=== PATIENT | male | born 1990 | race African-American/Black ===

== ENCOUNTER 2024-08-23 12:59 | Inpatient (IN) | payer OTHER ==
[2024-08-23 13:39] VITALS: BMI 18.3
[2024-08-23] MEDS ORDERED: IBUPROFEN 400 MG TABLET (FP) PO PRN (13:52)
[2024-08-23] MEDS ORDERED: LORazepam 1 MG TABLET PO PRN (13:52)
[2024-08-23] MEDS ORDERED: IBUPROFEN 600 MG TABLET (FP) PO PRN (13:52)
[2024-08-23] MEDS ORDERED: MAG HYDROX/AL HYDROX/SIMETH 30 ML UNIT-DOSE CUP PO PRN (13:52)
[2024-08-23] MEDS ORDERED: DICYCLOMINE HCL 10 MG CAPSULE PO PRN (13:52)
[2024-08-23] MEDS ORDERED: BENZOCAINE/MENTHOL (CHLORASEPTIC ) LOZENGE MM PRN (13:52)
[2024-08-23] MEDS ORDERED: NICOTINE POLACRILEX 2 MG GUM BUC PRN (13:52)
[2024-08-23] MEDS ORDERED: BENZONATATE 200 MG CAPSULE PO PRN (13:52)
[2024-08-23] MEDS ORDERED: POLYETHYLENE GLYCOL (HEALTHYLAX) 3350 17 GM PACKET PO PRN (13:52)
[2024-08-23] MEDS ORDERED: METHOCARBAMOL 500 MG TABLET PO PRN (13:52)
[2024-08-23] MEDS ORDERED: guaiFENesin 600 MG TABLET.ER (FP) PO PRN (13:52)
[2024-08-23] MEDS ORDERED: NALOXONE (NARCAN) HCL 4 MG/0.1 ML SPRAY NS PRN (13:52)
[2024-08-23] MEDS ORDERED: MAGNESIUM HYDROX 2400MG/30ML ORAL SUSPENSION 30 ML CUP PO PRN (13:52)
[2024-08-23] MEDS ORDERED: ONDANSETRON *ODT* 4 MG TABLET SL PRN (13:52)
[2024-08-23] MEDS ORDERED: BISMUTH SUBSALICYLATE 524 MG/30 ML PO PRN (13:52)
[2024-08-23] MEDS ORDERED: LOPERAMIDE HCL 2 MG CAPSULE PO PRN (13:52)
[2024-08-23] MEDS ORDERED: hydrOXYzine PAMOATE 25 MG CAPSULE (FP) PO PRN (13:52)
[2024-08-23] MEDS ORDERED: PRENATAL VITAMINS W/ FOLIC ACID TABLET (FP) PO ONE (15:36)
[2024-08-23] MEDS: PRENATAL VITAMINS W/ FOLIC ACID TABLET (FP) PO SCH (15:38)
[2024-08-23] MEDS: LORazepam 2 MG TABLET PO SCH (17:14)
[2024-08-23] MEDS: buPROPion HCL 100 MG TABLET PO ONE (18:53)
[2024-08-23] MEDS: MELATONIN 5 MG TABLETS PO SCH (22:15)
[2024-08-23] MEDS: THIAMINE 100 MG TABLET PO SCH (22:16)
[2024-08-24 11:19] LABS: HEMATOCRIT 42.8 % (40.1-51.0); HEMOGLOBIN 13.9 g/dL (13.7-17.5); MCHC 32.5 g/dl (32.3-36.5); MEAN CELL VOLUME 99.3 fl (79.0-92.2); MEAN PLT VOLUME 9.4 fl (9.4-12.4); PLATELET COUNT 195 x10^3/uL (163-337); RDW 12.4 % (12.0-15.6)
[2024-08-24 15:09] LABS: HCV DIAGNOSTIC IN-HOUSE W/RFLX NON-REACTIVE (NONREACTIVE); HIV INTERPRETATION NEGATIVE (NEGATIVE)
[2024-08-24 16:45] LABS: POTASSIUM 3.8 mmol/L (3.5-5.1)
[2024-08-24 16:46] LABS: CALCIUM 9.1 mg/dL (8.5-10.1)
[2024-08-24 16:47] LABS: ALBUMIN 3.2 g/dl (3.4-5.0); BLOOD UREA NITROGEN 9.1 mg/dL (7-18)
[2024-08-24 16:52] LABS: BILIRUBIN,TOTAL 0.9 mg/dL (0.2-1); TOT PROT 6.7 g/dl (6.4-8.2)
[2024-08-24] MEDS: ACETAMINOPHEN 325 MG TABLET (FP) PO PRN (22:23)
[2024-08-25] MEDS: LORazepam 1 MG TABLET PO SCH (05:24)
[2024-08-25] MEDS ORDERED: BACITRACIN ZINC 15 GM TUBE TOPICAL OINTMENT TP PRN (19:21)
[2024-08-25] MEDS: BACITRACIN 0.9 GM PACKET TP PRN (22:29)
[2024-08-26] MEDS ORDERED: LORazepam 0.5 MG TABLET PO PRN
[2024-08-26] MEDS: LORazepam 0.5 MG TABLET PO SCH (05:16)
[2024-08-27] MEDS: LORazepam 0.5 MG TABLET PO ONE (05:35)
[2024-08-27 09:43] VITALS: BP 119/74; PULSE 84; RESP 18; TEMP 97.5
== END 2024-08-27 10:01 | disposition home or self-care (01) | DRG 775 ==
LOC: YASAS 12:59 → Y3N 16:00
PROVIDERS: ADMIT Allergy & Immunology; ATTEND Allergy & Immunology
PROC: HZ2ZZZZ Detoxification Services for Substance Abuse Treatment (ICD-10-PCS; principal; 2024-08-23)
DX: F10.230 Alcohol dependence with withdrawal, uncomplicated (principal); F12.20 Cannabis dependence, uncomplicated; F17.210 Nicotine dependence, cigarettes, uncomplicated; F43.10 Post-traumatic stress disorder, unspecified; F32.9 Major depressive disorder, single episode, unspecified; F41.9 Anxiety disorder, unspecified
CPT/HCPCS: 36415; 80053; 80305; 80307; 85027; 86780; 86803; 87389; 93005; 93010